=== PATIENT | female | born 1970 | race Caucasian/White ===

== ENCOUNTER 2017-12-25 17:12 | Emergency (ER) | payer BC ==
--- NOTE | 2017-12-25 18:08 | XR ---
EXAMINATION TYPE: XR ankle complete LT DATE OF EXAM: 12/25/2017 CLINICAL HISTORY: Pain and swelling after injury. TECHNIQUE: Frontal, lateral and oblique images of the left ankle are obtained. COMPARISON: None. FINDINGS: There is oblique minimally displaced fracture through lateral malleolus above the mortise posterior separation roughly 1.1 cm. There is moderate associated soft tissue swelling over lateral m alleolus. There is acute displaced transverse fracture medial malleolus with 3 mm separation. There is 1.2 cm f racture fragment. There is comminuted displaced fracture through the posterior malleolus. The ankle mortise appears is asymmetrically widened laterally. IMPRESSION: There is acute displaced trimalleolar fracture of the left ankle.
[2017-12-25] MEDS ORDERED: MORPHINE SULFATE 4 MG/0.8 ML SYRINGE (INJ) IVP STA (18:17)
[2017-12-25] MEDS ORDERED: ONDANSETRON ODT 4 MG TAB PO STA (18:17)
--- NOTE | 2017-12-25 18:36 | ED ---
General Adult HPI - General Chief complaint: Extremity Injury, Lower Stated complaint: Ankle Injury Time Seen by Provider: 12/25/17 17:56 Source: patient Mode of arrival: wheelchair Limitations: no limitations - History of Present Illness Initial comments: Patient's 47-year-old female presented to the emergency room today with a chief complaint of injury to the left ankle. Patient does admit that she was climbing on the monkey bars when she lost her auto refinisher felt down to the ground and rolled the left ankle. She states she felt a pop. Patient admits that she has increased pain with any movements of the left ankle. She denies any head injury or loss conscious. Denies any other complaints. Patient denies any recent fever, chills, shortness of breath, chest pain, back pain, abdominal pain , nausea or vomiting, numbness or tingling, headaches or visual changes, or any other complaints. - Related Data Previous Rx's Medication Instructions Recorded Hydrocodone/Acetaminophen [Hawks 1 each PO Q4-6H PRN #15 tab 12/25/17 5-325] Allergies Allergy/AdvReac Type Severity Reaction Status Date / Time No Known Allergies Allergy Verified 12/25/17 18:04 Review of Systems ROS Statement: Those systems with pertinent positive or pertinent negative responses have been documented in the HPI. ROS Other: All systems not noted in ROS Statement are negative. Past Medical History Additional Past Medical History / Comment(s): MENORRHAGIA History of Any Multi-Drug Resistant Organisms: None Reported Past Surgical History: Breast Surgery Additional Past Surgical History / Comment(s): LEFT BREAST BENIGN CYST X3, EGD, COLONOSCOPY Past Anesthesia/Blood Transfusion Reactions: No Reported Reaction Past Psychological History: No Psychological Hx Reported Smoking Status: Current every day smoker Past Alcohol Use History: None Reported Past Drug Use History: None Reported - Past Family History Mother Family Medical History: Cancer Additional Family Medical History / Comment(s): OVARIAN General Exam - General Exam Comments Initial Comments: General: The patient is awake and alert, in no distress, and does not appear acutely ill. Neck: The neck is supple, there is no tenderness or JVD. Cardiovascular: There is a regular rate and rhythm. No murmur, rub or gallop is appreciated. Respiratory: Lungs are clear to auscultation, respirations are non-labored, breath sounds are equal. No wheezes, stridor, rales, or rhonchi. Musculoskeletal: Pulses 2+. Patient shows limited range of motion due to pain. Tender over both the medial lateral malleolus. No specific bony tenderness to the left knee or fibular head. No tenderness down to the left foot. Sensations are intact. Neurological: A&O x 3. CN II-XII intact, There are no obvious motor or sensory deficits. Coordination appears grossly intact. Speech is normal. Skin: Skin is warm and dry and no rashes or lesions are noted. Psychiatric: Normal mood and affect. Limitations: no limitations Course Vital Signs 12/25/17 12/25/17 17:40 20:50 Temperature 97.9 F 98.5 F Pulse Rate 98 91 Respiratory 16 Rate Blood Pressure 118/66 105/55 O2 Sat by Pulse 97 97 Oximetry Medical Decision Making - Medical Decision Making X-rays were reviewed does show trimalleolar fracture. Case was discussed with attending physician Dr. Corona who did discuss the case with on-call orthopedic doctor Lencho who recommends reduction here in the ER splinting and following up in the office at 8 AM. Reduction was performed at bedside with attending physician Dr. Corona. Patient was splinted in a posterior OCL and a sugar tong splint short leg. Emergency room. X-rays show improved alignment of fracture. Results were discussed with the patient. She is advised follow- up tomorrow morning in the office who will be given prescription for pain medication to go home with. Advised to ice elevate and use crutches nonweightbearing. Disposition Clinical Impression: Trimalleolar fracture Disposition: HOME SELF-CARE Condition: Good Instructions: Ankle Fracture (ED) Additional Instructions: Please leave splint in place and follow-up orthopedics tomorrow morning. Please use crutches with nonweightbearing. Please use pain medication as prescribed continue to ice elevate area 20 minutes at a time. Please return for any other concerns. Prescriptions: Hydrocodone/Acetaminophen [Hawks 5-325] 1 each PO Q4-6H PRN #15 tab PRN Reason: Pain Is patient prescribed a controlled substance at d/c from ED?: No Referrals: Tona Pimentel MD [Primary Care Provider] - 1-2 days Deandre Musa MD [STAFF PHYSICIAN] - 1-2 days Time of Disposition: 21:28
[2017-12-25] MEDS ORDERED: LORazepam 2 MG/ML INJ IV STA (18:41)
--- NOTE | 2017-12-25 18:58 | XR ---
EXAMINATION TYPE: XR tibia fibula LT DATE OF EXAM: 12/25/2017 CLINICAL HISTORY: Pain and swelling after injury. TECHNIQUE: Two views of the left leg are obtained. COMPARISON: Left ankle x-ray earlier today. FINDINGS: There is no additional proximal acute fracture or dislocation seen in the left tibia or fi bula. Displaced trimalleolar fracture with associated soft tissue swelling of mortise disruption is r edemonstrated without significant interval change. The overlying soft tissue appears unremarkable. IMPRESSION: There is no additional proximal acute fracture or dislocation seen in the left tibia or fibula.
[2017-12-25] MEDS ORDERED: MORPHINE SULFATE 4 MG/ML SYRINGE IVP STA (21:05)
--- NOTE | 2017-12-25 21:30 | XR ---
EXAMINATION TYPE: XR ankle limited LT DATE OF EXAM: 12/25/2017 CLINICAL HISTORY: Post reduction of trimalleolar fracture. TECHNIQUE: Frontal and lateral images of the left ankle are obtained. COMPARISON: Left ankle x-ray earlier today.. FINDINGS: There is interval placement of fiberglass cast material which is noted to lower radiograph ic sensitivity for evaluation of fine anatomic detail. There is redemonstration of trimalleolar fract ure with 3 mm stable acute distracted transverse fracture at level of medial malleolus. Oblique fract ure through lateral malleolus above mortise shows improved alignment on frontal view with improved bu t persistent posterior displacement now measured at 6 mm . There is acute displaced posterior malleol us fracture with improved alignment now measured at 8 mm posterior displaced. Mortise narrowing is im proved on lateral view. IMPRESSION: There is improved alignment after reduction and casting in trimalleolar left ankle frac ture.
[2017-12-25 21:59] VITALS: BP 112/63; PULSE 100; RESP 20; TEMP 97.8
== END 2017-12-25 22:00 | disposition home or self-care (01) ==
LOC: EC 17:12
DX: S82.852A Displaced trimalleolar fracture of left lower leg, initial encounter for closed fracture (principal); F17.200 Nicotine dependence, unspecified, uncomplicated; W09.8XXA Fall on or from other playground equipment, initial encounter; Y92.89 Other specified places as the place of occurrence of the external cause
CPT/HCPCS: 73590; 73600; 73610; 99283; 29515; 96374; 96375; 96376; J2060; J2270 ×2

== ENCOUNTER → 2017-12-29 | Outpatient (CLI) | payer BC ==
--- NOTE | 2017-12-30 11:26 | CT ---
EXAMINATION TYPE: CT ankle LT wo con DATE OF EXAM: 12/29/2017 COMPARISON: NONE HISTORY: Left ankle pain. CT DLP: 219.[address] of the left ankle with reconstruction imaging. TECHNIQUE: Unenhanced CT of the left ankle was performed with bone and soft tissue window settings man bmitted in the axial coronal and sagittal planes. At a separate workstation [id number] TR imaging was obtai francisco. FINDINGS: There is minimally comminuted oblique fracture involving the distal fibula with displacement estimate d at 6.9 mm. There is also comminuted posterior malleolar fracture with displacement of 3.5 mm. Commi nuted medial malleolar fracture also noted. Displacement is estimated at 5 mm. Several mall ossific fragments are noted anterior aspect of the talus laterally. These measure up to 2 mm each. Medial malleolar and posterior malleolar fracture components extending into the ankle mortise. Ankle mortise appears to be grossly intact at this time. Talar dome is intact. Os calcis is intact. There is extensive soft tissue edema noted. IMPRESSION: 1. Trimalleolar fractures of the left ankle as discussed. Chip or avulsion fracture components shanel espino from the anterolateral talus.
== END | disposition home or self-care (01) ==
LOC: RADCTMAIN 16:50
PROVIDERS: ATTEND Orthopaedic Surgery Sports Medicine
DX: S82.852A Displaced trimalleolar fracture of left lower leg, initial encounter for closed fracture (principal)

== ENCOUNTER 2018-01-03 10:42 | Day surgery (SDC) | payer BC ==
[2018-01-02 11:54] VITALS: BMI 28.3
[~2018-01-03 10:42] MED LIST: DEXAMETHASONE SOD PHOSPHATE 10 MG/ML 1 ML VIAL IV ONE; LIDOCAINE 1% 20 ML VIAL (10MG/ML) FOR IV START INTRADERMA PRN; MIDAZOLAM 2 MG/2 ML VIAL IV PRN; ONDANSETRON ODT 4 MG TAB PO ONE; SCOPOLAMINE 1.5MG/72HR PATCH TRANSDERM ONE; ceFAZolin IN SWFI 2 GM/20 ML SYRINGE IVP ONE; fentaNYL (PF) 50 MCG/ML 2 ML AMP IV PRN
[2018-01-03] MEDS: LACTATED RINGERS 1,000 ML IV SCH ×3 (11:51→20:43)
[2018-01-03 12:03] LABS: Basophils % (A) 0 %; Eosinophils # (A) 0.3 k/uL (0-0.7); Eosinophils % (A) 3 %; HCT 48.5 % (34.0-46.0); HGB 15.7 gm/dL (11.4-16.0); Lymphocytes # (A) 2.1 k/uL (1.0-4.8); Lymphocytes % (A) 23 %; MCH 28.8 pg (25.0-35.0); MCHC 32.3 g/dL (31.0-37.0); MCV 89.2 fL (80.0-100.0); Mean Platelet Volume 7.1; Monocytes # (A) 0.4 k/uL (0-1.0); Monocytes % (A) 4 %; Neutrophils # (A) 6.2 k/uL (1.3-7.7); Neutrophils % (A) 69 %; Platelet Count 352 k/uL (150-450); RBC 5.44 m/uL (3.80-5.40); RDW 13.9 % (11.5-15.5); WBC 9.1 k/uL (3.8-10.6)
[2018-01-03] MEDS ORDERED: MIDAZOLAM 2 MG/2 ML VIAL ONE ×2 (12:28→13:49)
--- NOTE | 2018-01-03 13:12 | P.ONQ ---
Anesthesiology Proc Note - PNB - Peripheral Nerve Block Performed Left Popliteal Time Out Performed: Yes Procedure Start Time: 12:50 Indication: Acute Post-Operative Pain, Requested by physician (Dr Quinn) Sedation Type: Sedate with meaningful contact maintained Preparation: Sterile Prep Position: Supine (lateral) Catheter: None Needle Types: Other (see comment) (soham) Needle Size: 50mm (2") Needle Gauge: 21 Technique: Ultrasound Injectate: 0.5% Ropivacaine (see comment for volume) (20cc) Blood Aspirated: No Pain Paresthesia on Injection Noted: No Resistance on Injection: Normal Events: Uneventful and Well Tolerated
[2018-01-03] MEDS ORDERED: PROPOFOL 10 MG/ML 20 ML VIAL IV ONE (13:49)
[2018-01-03] MEDS ORDERED: GLYCOPYRROLATE 0.2 MG/ML 2 ML VIAL ONE (13:49)
[2018-01-03] MEDS ORDERED: LIDOCAINE 1% INJ 10MG/ML (20 ML MDV) ONE (13:49)
[2018-01-03] MEDS ORDERED: fentaNYL (PF) 50 MCG/ML 2 ML AMP ONE (13:49)
[2018-01-03] MEDS ORDERED: LIDOCAINE 2%-EPI 1:100,000 20 ML VIAL ONE (13:49)
[2018-01-03] MEDS ORDERED: SUCCINYLCHOLINE CHLORIDE 100 MG/5 ML SYR IV ONE (13:49)
[2018-01-03] MEDS ORDERED: NEOSTIGMINE 1 MG/ML 10 ML VIAL ONE (13:49)
[2018-01-03] MEDS ORDERED: ROPIVACAINE 5 MG/ML 30 ML VIAL ONE (13:49)
[2018-01-03] MEDS ORDERED: MORPHINE SULFATE 10 MG/ML SYRINGE ONE (13:49)
[2018-01-03] MEDS ORDERED: ROCURONIUM BROMIDE 10 MG/ML 10 ML VIAL IV ONE (13:49)
[2018-01-03] MEDS ORDERED: LACTATED RINGERS 1,000 ML IV ONE (14:34)
[2018-01-03] MEDS ORDERED: SENNOSIDES-DOCUSATE SODIUM 1 EACH TAB PO PRN (15:40)
[2018-01-03] MEDS ORDERED: ONDANSETRON 4 MG/2 ML VIAL IVP PRN (15:40)
[2018-01-03] MEDS ORDERED: hydrOXYzine PAMOATE 25 MG CAP PO PRN (15:40)
[2018-01-03] MEDS ORDERED: MORPHINE SULFATE 4 MG/ML SYRINGE IVP PRN ×2 (15:40)
[2018-01-03] MEDS ORDERED: HYDROcodone/APAP 7.5-325MG 1 EACH TAB PO PRN (15:43)
--- NOTE | 2018-01-03 16:01 | FL ---
EXAMINATION TYPE: FL guidance operating room, XR ankle limited LT DATE OF EXAM: 01/03/2018 CLINICAL HISTORY: Trimalar fracture. TECHNIQUE: Fluoroscopy. Intraoperative limited views left ankle. COMPARISON: CT ankle December 29, 2017. FINDINGS: Fluoroscopic guidance was provided during open reduction internal fixation procedure perfo rmed by Dr. Esparza. A total of 55 seconds of fluoroscopic time was utilized during the procedure a nd 2 spot intraoperative images are acquired. Images acquired show placement lateral fixating plate through comminuted fracture deformity lateral m alleolus, single fixating screws through fracture comminuted deformity medial malleolus and 2 additio nal transverse fixating screws through posterior malleolus fracture. Alignment appears satisfactory o n intraoperative images obtained. IMPRESSION: As Above.
--- NOTE | 2018-01-03 16:20 | P.OP ---
Date of Procedure: 01/03/18 Preoperative Diagnosis: 1. Closed left trimalleolar ankle fracture 2. Current cigarette smoker, smoking up to 2 packs of cigarettes a day Postoperative Diagnosis: Same Procedure(s) Performed: 1. Open reduction and internal fixation of left trimalleolar ankle fracture 2. Application of joint stress radiography by physician 3. Application of short-leg splint, left ankle Anesthesia: JUAQUINA Surgeon: Blayne Esparza Disaster Director #1: Devi Ortiz Estimated Blood Loss (ml): 10 IV fluids (ml): 1,100 Pathology: none sent Condition: stable Disposition: PACU Indications for Procedure: The patient is a 47-year-old female who sustained a fall going down some steps over a week ago. She was seen in the ER and was found to have a trimalleolar ankle fracture. She was seen by my partner, placed in a well-padded splint, sent for a CT scan and referred to my office for definitive treatment. I had a lengthy discussion with the patient and her and treatment. I recommended open reduction and internal fixation. We discussed the potential risks and complications of surgery including but not limited to risk of anesthesia, risk of superficial infection, risk of deep infection, risk of delayed wound healing, risk of damage to local blood vessels or nerves, risk of fracture nonunion, risk of fracture malunion, risk of symptomatically hardware, risk of postoperative loss of reduction, risk of posterior medical arthritis, risk of chronic pain, risk of chronic swelling, need for further surgery, symptomatically hardware, DVT, PE, other medical complications, possibly loss of life or limb. The patient understands that since she smokes up to 2 packs of cigarettes a day she is a much higher risk of having a complication. She voiced her understanding of this and provided her verbal and written consent to go forward with surgery. Operative Findings: The patient's left ankle was extremely dirty with dirt over the entire foot and ankle. The splint was taken down and found to be grossly soiled. Soft tissue swelling had resolved and there was wrinkling of the skin. Due to the patient' s smoking 2 packs of cigarettes a day and having a grossly dirty foot I elected not to perform a posterolateral approach with plating of the posterior malleolus and fibula due to concern for wound issues. I elected to place cannulated screws for the posterior malleolus and a posterior anti-glide plate on the fibula to avoid soft tissue prominence. I generally like to perform open reduction and plating of the posterior malleolus but I felt in this patient due to her high smoking history and visible he dirty foot she would be better served by a less invasive surgery. Description of Procedure: The patient was met in preoperative holding and the correct left leg was marked with my initials. I reviewed the consent form with the patient and her . All their questions were answered. The patient was then brought back to the operating room. She was given a general anesthetic and preoperative antibiotics. She was flipped into the lateral decubitus position with the right side down and the left leg up. An axillary roll was placed. All bony prominences are well-padded. The splint was removed. A tourniquet was applied proximal aspect of the left leg. A ramp was placed under her left leg after the legs were scissored. The right leg was secured to the table with foam. The arms were held on an arm scanlon and had a pillow placed between them. The patient's left leg was then prepped and draped in the standard sterile fashion. Prior to starting surgery timeout was performed identifying the correct patient, operative extremity, and procedure. The patient's leg was then elevated, exsanguinated with an Esmarch bandage, and the tourniquet was inflated to 250 mmHg. I began by addressing the posterior malleolus. I initially had planned to perform a posterior lateral approach but due to the patient's heavy smoking and visibly dirty leg I felt she was better served by a less invasive approach with decreased soft tissue stripping. Stab incision was made over the anterior aspect of the ankle and posterior lateral ankle. Dissection was carried down to bone with a hemostat. A large Richter reduction clamp was used to percutaneously reduce and acuña in the posterior malleolus. I then placed K wires from the anterior aspect of the distal tibia directed postero-laterally to allow the screws to cross the plain of the posterior malleolus fracture. The K wires were placed grasping the posterior malleolus fracture. Stab incisions were made over the K wires. The cannulated depth gauge was used to measure the length of the screws. Partially threaded 4.0 mm screws were then placed anteriorly to posteriorly across the distal tibia generating excellent purchase in the posterior malleolus. The wfkor-xo-kikpw reduction clamp was removed and the reduction held. There appeared to be very little step-off at the joint surface. Attention was then turned to the distal fibula. An incision was made just posterior to the fibula. Skin incision was carried through the subcutaneous tissue down to the fascia. The periosteum over the distal fibula was sharply elevated and the fracture exposed. There was a loose fragment in the fracture which was removed with a Diego. The fracture site was debrided allowing for a cortical read. A bxvra-xy-crelu reduction clamp was then placed and the fracture anatomically reduced. I then contoured a 7-hole one third tubular plate over the posterolateral border of the fibula to use as an anti-glide type construct. A 3.5 mm screw was placed just proximal to the fracture in the third hole of the plate. A second 3.5 mm screw was placed in the most proximal hole of the plate. I then placed a 3.5 mm screw in the most distal hole of the plate from posterior to anterior. I then placed a 2.7 mm lag screw through the 6-hole the plate. A 2.7 mm drill bit was used to create a gliding hole in the posterior cortex of the distal fragment and a 2.0 mm drill bit was used to create a threaded hole in the anterior cortex of the proximal fragment. A fully threaded 2.7 mm lag screw was placed generating excellent compression across the fracture site. A final 3.5 mm nonlocking screw was placed in the second hole of the plate. The air was let out of the beanbag and the patient was rotated into a supine position. Attention was then turned to the medial malleolus. A longitudinal incision was made centered over the medial malleolus. Dissection was carried down to subcutaneous tissue. The fracture site was identified. The fracture site was sharply debrided to allow for a cortical reduction. The fragment was a very small anterior colliculus piece. A 2.0 drill bit was used to create a unicortical hole just proximal to the fracture. 1 daniele of a uvntu-yv-rykul reduction clamp was placed in this hole and the second daniele was placed at the tip of the medial malleolus to compress the fracture. Due to the size of the medial malleolus fragment I was only able to place a single screw. A fully threaded, bicortical 2.7 mm screw measuring 75 mm was placed generating excellent compression across the fracture. Final fluoroscopic images were taken. On the mortise view the talus was anatomically reduced. The fibula was out to length with scientology of the dime sign. On the lateral view the talus was centered under the plafond. A manual external rotation stress x-ray was performed and there was no widening of the medial clear space or incisor. I interpreted this as a stable construct not requiring syndesmotic fixation. Both wounds were then copiously irrigated. The periosteum was closed with running 0 Vicryl over the lateral wound. The deep subcu was reapproximated using 2-0 Vicryl. The skin was closed with 3-0 nylon Allgower modification of the Donati stitch. The medial wound was closed with 2-0 Vicryl and 3-0 nylon horizontal mattresses. The stab incisions were closed with 3-0 nylon horizontal mattress stitches. I verified that all instrument, sponge, and sharp counts were correct. A sterile dressing consisting of quarter inch Brown stretchy Steri-Strips, Betadine soaked Adaptic , and web roll was applied. A well-padded bulky Mena splint was placed after the drapes were taken down. The patient was awoken from her anesthetic and transferred to PACU without procedure well. Devi Ortiz NP was required as a skilled team assistant for patient positioning, retraction, reduction, placement of hardware, closure of wounds, and application of splint
[2018-01-03] MEDS: MEPERIDINE 50 MG/ML SYRINGE IVP ONE ×2 (16:54→17:04)
[2018-01-03 19:22] VITALS: TEMP 98.2
[2018-01-03] MEDS: ENOXAPARIN 40 MG/0.4 ML SYRINGE SQ SCH (20:45)
[2018-01-03] MEDS: MORPHINE SULFATE 4 MG/ML SYRINGE IVP PRN (20:46)
[2018-01-03] MEDS: HYDROcodone/APAP 7.5-325MG 1 EACH TAB PO PRN (20:48)
[2018-01-03] MEDS: ceFAZolin IN SWFI 2 GM/20 ML SYRINGE IVP SCH (23:18)
[2018-01-04] MEDS: LACTATED RINGERS 1,000 ML IV SCH ×2 (04:48→10:48)
[2018-01-04] MEDS: ceFAZolin IN SWFI 2 GM/20 ML SYRINGE IVP SCH (06:18)
[2018-01-04] MEDS: HYDROcodone/APAP 7.5-325MG 1 EACH TAB PO PRN ×2 (06:18→11:27)
[2018-01-04 07:02] VITALS: BP 118/63; PULSE 83; RESP 14
--- NOTE | 2018-01-04 07:17 | CONS ---
CONSULTATION REASON FOR CONSULTATION: Advice regarding DJD and other medical issues requested by Dr. Esparza. HISTORY OF PRESENT ILLNESS: This 47-year-old woman with a past history of breast surgery, history of nicotine dependence had a fall wearing a half cast. The patient underwent open reduction internal fixation of trimalleolar ankle fracture by Dr. Esparza. There is no history of fever, rigors. No history of headache, loss of consciousness, seizures. PAST MEDICAL HISTORY: History of fracture, history of breast surgery, benign cyst, smoking. MEDICATIONS: Prior to admission include Hydrocodone 7.5 p.r.n. ALLERGIES: None. FAMILY HISTORY: History of in the family. SOCIAL HISTORY: History of smoking. REVIEW OF SYSTEMS: ENT: No diminished hearing or vision. Cardiovascular: No angina or palpitations. Respiratory: No cough, hemoptysis. GI no nausea or vomiting. : No dysuria. Central nervous system: No numbness or weakness. ALLERGIES/IMMUNOLOGY: No asthma or hayfever. MUSCULOSKELETAL: As mentioned earlier. HEMATOLOGY/ONCOLOGY: No history of anemia. Endocrine: No history of diabetes or hypothyroid. Constitutional: As mentioned earlier. Dermatology: Negative. Rheumatology: Negative. Psychiatry: As mentioned earlier. PHYSICAL EXAMINATION: Alert and oriented times three. Pulse is 95, blood pressure 109/74, respiration 16, temperature 98.4, pulse ox 98% on room air. HEENT: Conjunctivae normal. NECK: No jugular venous distention. Cardiovascular : S1, S2 muffled. Respiratory: Breath sounds diminished in the bases. No rhonchi and no crackles. ABDOMEN: Soft, nontender. Nervous system: Higher functions as mentioned earlier. Moves all 4 limbs. No focal deficits. Legs status post left ankle surgery. SKIN: No ulcer, rash, or bleeding. Joints: As mentioned earlier. LAB: Investigations are WBC 9.1, hemoglobin 15.7. ASSESSMENT: 1. Closed left trimalleolar ankle fracture status post open reduction and internal fixation. 2. History of breast surgery. 3. History of nicotine dependence. RECOMMENDATIONS AND DISCUSSION: In this 47-year-old woman who presented with multiple medical issues, at this time, I recommend continue the current management and medications, symptomatic treatment. Otherwise resume the home medications. Pain medication and DVT prophylaxis. The patient may be asked to follow up with Dr. Pmientel after discharge. Smoking cessation was recommended. Habitrol patch also may be used on an as necessary basis. Further recommendations to follow. Thank you Dr. Esparza for allowing me to participate in the care of this patient. MMJAEL / SUGARN: [id number] / MTDNayana
--- NOTE | 2018-01-04 08:52 | P.DS ---
Providers Expected date of discharge: 01/04/18 Attending physician: Blayne Esparza Consults: 01/03/18 15:43 Consult Physician Routine Consulting Provider: Lori Villalobos Consult Reason/Comments: medical management Do you want consulting provider notified?: Yes Primary care physician: Tona Pimentel - Discharge Diagnosis(es) (1) Status post ORIF of fracture of ankle Current Visit: Yes Status: Acute (2) Trimalleolar fracture Current Visit: No Status: Acute Hospital Course: This is a 47-year-old female admitted to [facility] on 2017 for open reduction internal fixation of her left ankle trimalleolar fracture. The procedures performed without complication or sequelae. The patient is doing well postoperatively. Vital signs are stable on postoperative day #1. Splint is intact. She has full toe motion without difficulty or pain. Capillary refill is less than 3 seconds. Neurovascular status lower extremity is intact. She may be discharged to home today. She is to follow-up in 10-14 days. She is strict nonweightbearing to left lower extremity. Patient Condition at Discharge: Good Plan - Discharge Summary Discharge Rx Participant: Yes New Discharge Prescriptions: New Aspirin 325 mg PO BID #60 tab HYDROcodone/APAP 7.5-325MG [[place] 7.5-325] 1 - 2 tab PO Q4-6H PRN #90 tab PRN Reason: Pain Sennosides-Docusate Sodium [Senokot-S] 1 tab PO BID #60 tablet No Action HYDROcodone/APAP 7.5-325MG [[place] 7.5-325] 1 tab PO Q6HR PRN PRN Reason: Pain Discharge Medication List HYDROcodone/APAP 7.5-325MG [[place] 7.5-325] 1 tab PO Q6HR PRN 01/02/18 [History] Aspirin 325 mg PO BID #60 tab 01/04/18 [Rx] HYDROcodone/APAP 7.5-325MG [[place] 7.5-325] 1 - 2 tab PO Q4-6H PRN #90 tab [Rx] Sennosides-Docusate Sodium [Senokot-S] 1 tab PO BID #60 tablet 01/04/18 [Rx] Follow up Appointment(s)/Referral(s): Blayne Esparza MD [Medical Doctor] - 10 Days Activity/Diet/Wound Care/Special Instructions: No weightbearing to the left leg Elevate and ice left ankle Keep splint clean, dry, and intact Follow up with Dr. Esparza in 10-14 days Call [facility] with any questions or concerns, . Discharge Disposition: HOME SELF-CARE
[2018-01-04] MEDS: ENOXAPARIN 40 MG/0.4 ML SYRINGE SQ SCH (09:10)
[2018-01-04] MEDS: MORPHINE SULFATE 4 MG/ML SYRINGE IVP PRN (10:05)
--- NOTE | 2018-01-04 22:38 | PN ---
PROGRESS NOTE DATE OF SERVICE: 01/04/2018 This 47-year-old woman was admitted with a closed left bimalleolar ankle fracture had ORIF. No chest pain. No palpitations. No fever. EXAM: Alert and oriented x3. Pulse 83, blood pressure 118/60, respiration 14, temperature 98.2, pulse ox 97% room air. HEENT: Conjunctivae normal. NECK: No jugular venous distention. CARDIOVASCULAR: S1, S2. RESPIRATORY: Breath sounds diminished in the bases. No rhonchi and no crackles. ABDOMEN: Soft, nontender. NERVOUS SYSTEM: No focal deficits. LABS: WBC 9.2, hemoglobin 12.7. ASSESSMENT: 1. Closed left trimalleolar ankle fracture, status post open reduction and internal fixation. 2. History of breast surgery. 3. History of nicotine dependence. RECOMMENDATIONS AND DISCUSSION: Continue current management and continue with symptomatic treatment. Incentive spirometry. Closely follow with primary physician in the outpatient setting. Further recommendations to follow. The rest of the recommendations per Orthopedic Surgery. MMODL / IJN: [id number] /
== END 2018-01-04 11:30 | disposition home or self-care (01) ==
LOC: OR 10:42 → EDSTATUS 12:30 → 3SUR 16:00 → OR 01-04 11:30
PROVIDERS: ATTEND Orthopaedic Surgery
DX: S82.852A Displaced trimalleolar fracture of left lower leg, initial encounter for closed fracture (principal); W17.89XA Other fall from one level to another, initial encounter; F17.210 Nicotine dependence, cigarettes, uncomplicated
CPT/HCPCS: 81025; 85025; 73600; 27822; 64450; C1713; J2250; J2270 ×2; J1100; J2710; J2175; J2001; J1650 ×2; J3010; J2795; J0330; J2704; J0690 ×2

== ENCOUNTER → 2023-12-13 | Outpatient (CLI) | payer OTHER ==
--- NOTE | 2023-12-13 20:08 | XR ---
EXAMINATION TYPE: XR shoulder complete 3 views LT DATE OF EXAM: 12/13/2023 Comparison: None Clinical History: 53-year-old female [id number] LT SHLD PAIN Findings: AC joint is congruent and intact. Subacromial space is preserved. There is smooth delineation to the greater tuberosity. No acute fracture, subluxation, dislocation. Impression: No acute osseous abnormality seen. If symptoms persist, consider MRI.
== END | disposition home or self-care (01) ==
LOC: RADXRYALE 15:59
PROVIDERS: ATTEND Internal Medicine
DX: M25.512 Pain in left shoulder (principal)

== ENCOUNTER → 2025-03-20 | Outpatient (CLI) | payer OTHER ==
--- NOTE | 2025-03-20 19:21 | XR ---
EXAMINATION TYPE: XR cervical spine comp DATE OF EXAM: 03/20/2025 4:12 PM COMPARISON: None CLINICAL INDICATION: Female, 54 years old with history of [id number] CDD; [facility], pain TECHNIQUE: 5 views FINDINGS: No predental space widening or prevertebral soft tissue swelling. Mild degenerative disc disease C5-C 6. Degenerative trace grade 1 retrolisthesis C5-C6 interspace. Grade 1 anterolisthesis C3-C4. No odon toid view. Patient is edentulous. No significant bony neuroforaminal narrowing identified on either s yonathan. IMPRESSION: 1. Mild degenerative disc disease mid to lower lumbar spine. 2. Degenerative trace grade 1 spondylolisthesis C3-C4 and C5-C6. [facility], Workstation: [id number], 03/20/2025 7:18 PM
== END | disposition home or self-care (01) ==
LOC: RADXRYALE 15:49
PROVIDERS: ATTEND Internal Medicine
DX: M50.121 Cervical disc disorder at C4-C5 level with radiculopathy (principal); M43.12 Spondylolisthesis, cervical region
CPT/HCPCS: 72050